=== PATIENT | female | born 1955 | race Caucasian/White ===

== ENCOUNTER 2021-08-16 07:11 | Day surgery (SDC) | payer OTHER ==
[~2021-08-16 07:11] MED LIST: Lactated Ringers 1,000 ML IV SCH
[2021-08-16] MEDS ORDERED: fentaNYL 100 MCG/2 ML SDV ONE (09:41)
[2021-08-16] MEDS ORDERED: Propofol 200 MG/20 ML SDV ONE (09:41)
[2021-08-16] MEDS ORDERED: Midazolam 1 MG/ML 2 ML SDV ONE (09:41)
[2021-08-16 10:41] VITALS: BP 140/81; PULSE 74
== END 2021-08-16 11:26 | disposition home or self-care (01) ==
LOC: VM.SDS 07:11
PROVIDERS: ATTEND Family Medicine
DX: Z12.11 Encounter for screening for malignant neoplasm of colon (principal); D12.2 Benign neoplasm of ascending colon; D12.8 Benign neoplasm of rectum; K57.30 Diverticulosis of large intestine without perforation or abscess without bleeding; I10 Essential (primary) hypertension; E78.5 Hyperlipidemia, unspecified; Z98.890 Other specified postprocedural states; Z79.899 Other long term (current) drug therapy; Z88.8 Allergy status to other drugs, medicaments and biological substances; Z90.49 Acquired absence of other specified parts of digestive tract; Z87.891 Personal history of nicotine dependence
CPT/HCPCS: 00811; J2250; J2704; J3010; J7120

== ENCOUNTER 2022-10-24 07:45 | Emergency (ER) | payer OTHER, MEDICARE ==
[2022-10-24] MEDS ORDERED: Sodium Chloride 0.9% 10 ML Syringe FLUSH PRN (08:19)
[2022-10-24] MEDS ORDERED: Ondansetron 4 MG/2 ML SDV IVPUSH ONE (08:21)
[2022-10-24] MEDS ORDERED: Meclizine 25 MG Tab PO ONE (08:22)
[2022-10-24] MEDS ORDERED: Sodium Chloride 0.9% 1,000 ML IV SCH (08:30)
[2022-10-24 08:36] LABS: BASOPHILS PERCENT AUTO 0.3 % (0.2-1.2); EOSINOPHILS ABSOLUTE AUTO 0.3 x10^3/uL (0.0-0.5); EOSINOPHILS PERCENT AUTO 2.4 % (0.0-4.0); HEMATOCRIT 38.6 % (33.0-47.0); IMMATURE GRAN ABSOLUTE AUTO 0.03 x10^3/uL (0.00-0.07); LYMPHOCYTES ABSOLUTE AUTO 1.5 x10^3/uL (1.0-4.8); LYMPHOCYTES PERCENT AUTO 12.4 % (25.0-50.0); MEAN CORPUSCULAR HEMOGLOBIN 32.5 pg (26.0-32.0); MEAN CORPUSCULAR HGB CONC 33.7 g/dL (32.0-36.0); MEAN CORPUSCULAR VOLUME 96.5 fL (78.0-93.0); MONOCYTES ABSOLUTE AUTO 0.4 x10^3/uL (0.0-0.8); MONOCYTES PERCENT AUTO 3.3 % (2.0-11.0); NEUTROPHILS ABSOLUTE AUTO 9.5 x10^3/uL (1.8-7.7); NEUTROPHILS PERCENT AUTO 81.3 % (50.0-80.0); PLATELET COUNT,PLT 295 x10^3/uL (130-400); WHITE BLOOD CELL COUNT,WBC 11.7 x10^3/uL (4.0-10.0)
[2022-10-24 08:55] LABS: A/G RATIO 1.06; ALANINE AMINOTRANSFERASE,ALT 22 U/L (14-59); ALBUMIN 3.6 g/dL (3.4-5.0); ALKALINE PHOSPHATASE 61 U/L (46-116); ANION GAP 16.1 mmol/L (5-15); ASPARTATE AMNIOTRANSFERASE,AST 18 U/L (15-37); BILIRUBIN TOTAL 0.5 mg/dL (0.2-1.0); BLOOD UREA NITROGEN,BUN 9 mg/dL (7-18); CALCIUM 8.5 mg/dL (8.5-10.1); CARBON DIOXIDE,CO2 25 mmol/L (21-32); CHLORIDE,CL 108 mmol/L (98-107); CREATININE 0.8 mg/dL (0.55-1.02); ESTIMATED GFR 81 mL/min (>=60); GLUCOSE RANDOM 111 mg/dL (70-99); POTASSIUM,K 4.1 mmol/L (3.5-5.1); SODIUM,NA 145 mmol/L (136-145)
[2022-10-24 09:28] VITALS: BP 133/77; PULSE 74
== END 2022-10-24 09:30 | disposition home or self-care (01) ==
LOC: VM.ED 07:45
DX: R42 Dizziness and giddiness (principal); I10 Essential (primary) hypertension; E78.00 Pure hypercholesterolemia, unspecified; Z88.8 Allergy status to other drugs, medicaments and biological substances; Z88.5 Allergy status to narcotic agent; Z88.2 Allergy status to sulfonamides
CPT/HCPCS: 36415; 70450; 80053; 84484; 85025; 93005; 93010; 96361; 96374; 96375; 99284; 99284-25; A9270-GY; J2405; J3360; J7030

== ENCOUNTER 2024-09-30 07:36 | Day surgery (SDC) | payer MEDICARE ==
[~2024-09-30 07:36] MED LIST changes: -Lactated Ringers 1,000 ML IV SCH; +Sodium Chloride 0.9% 10 ML Syringe FLUSH PRN
[2024-09-30] MEDS: Lactated Ringers 1,000 ML IV SCH (07:53)
[2024-09-30] MEDS ORDERED: fentaNYL 100 MCG/2 ML SDV ONE (08:06)
[2024-09-30] MEDS ORDERED: Propofol 200 MG/20 ML SDV ONE ×2 (08:06→09:48)
[2024-09-30 10:23] VITALS: PULSE 75
[2024-09-30 10:32] VITALS: BP 125/71
== END 2024-09-30 11:35 | disposition home or self-care (01) ==
LOC: VM.SDS 07:36
PROVIDERS: ATTEND Family Medicine
DX: Z12.11 Encounter for screening for malignant neoplasm of colon (principal); K57.30 Diverticulosis of large intestine without perforation or abscess without bleeding; Z86.0100 Personal history of colon polyps, unspecified; I10 Essential (primary) hypertension; E78.00 Pure hypercholesterolemia, unspecified; Z87.891 Personal history of nicotine dependence; Z79.899 Other long term (current) drug therapy
CPT/HCPCS: 45378; J2704; J3010; J7120